=== PATIENT | female | born 1985 | race Caucasian/White ===

== ENCOUNTER 2019-06-06 17:53 | Observation (INO) | payer BC, OTHER ==
[2019-06-06 18:45] LABS: Basophils # (A) 0.1 k/uL (0-0.2); Basophils % (A) 1 %; Eosinophils # (A) 0.2 k/uL (0-0.7); Eosinophils % (A) 2 %; HCT 39.4 % (34.0-46.0); HGB 12.9 gm/dL (11.4-16.0); Lymphocytes # (A) 2.1 k/uL (1.0-4.8); Lymphocytes % (A) 24 %; MCH 27.6 pg (25.0-35.0); MCHC 32.8 g/dL (31.0-37.0); MCV 84.2 fL (80.0-100.0); Mean Platelet Volume 6.7; Monocytes # (A) 0.6 k/uL (0-1.0); Monocytes % (A) 6 %; Neutrophils # (A) 5.6 k/uL (1.3-7.7); Neutrophils % (A) 64 %; Platelet Count 284 k/uL (150-450); RBC 4.68 m/uL (3.80-5.40); RDW 13.1 % (11.5-15.5); WBC 8.7 k/uL (3.8-10.6)
--- NOTE | 2019-06-06 18:47 | ED ---
General Adult HPI - General Chief complaint: Chest Pain Stated complaint: palpitations/High BP Time Seen by Provider: 06/06/19 17:59 Source: patient Mode of arrival: ambulatory Limitations: no limitations - History of Present Illness Initial comments: This is a 34-year-old female who presents with complaints of palpitations and elevated blood pressure. She states she had the onset wall work today he has had occasional episodes in the past complained of some lightheadedness a brief episode less than 1 minute of chest pressure. She also was seen in outpatient clinic today and told follow-up with her doctor. She states when she is active she doesn't feel anything when she tries to rest she does notice the palpitations. No overt shortness of breath no recent illnesses no new medication she does have a history of hypertension was has not been on any medication and has not been diagnosed with hypertension. No other new medications no cough phlegm production dysuria hematuria no other modifying factors at this time. - Related Data Home Medications Medication Instructions Recorded Confirmed Cetirizine HCl [Zyrtec] 10 mg PO HS 06/06/19 06/06/19 Allergies Allergy/AdvReac Type Severity Reaction Status Date / Time No Known Allergies Allergy Verified 06/06/19 19:02 Review of Systems ROS Statement: Those systems with pertinent positive or pertinent negative responses have been documented in the HPI. ROS Other: All systems not noted in ROS Statement are negative. Past Medical History Additional Past Medical History / Comment(s): induced HTN, allergies History of Any Multi-Drug Resistant Organisms: None Reported Additional Past Surgical History / Comment(s): Sandra mcucllough&Thi Past Psychological History: No Psychological Hx Reported Smoking Status: Never smoker Past Alcohol Use History: Occasional Past Drug Use History: None Reported General Exam - General Exam Comments Initial Comments: This is a well-developed well-nourished awake alert oriented 3 female Limitations: no limitations General appearance: alert, in no apparent distress Head exam: Present: atraumatic, normocephalic, normal inspection Eye exam: Present: normal appearance, PERRL, EOMI. Absent: scleral icterus, conjunctival injection, periorbital swelling ENT exam: Present: normal exam, mucous membranes moist, TM's normal bilaterally Neck exam: Present: normal inspection, full ROM, other (No stridor JVD or bruits). Absent: tenderness, meningismus, lymphadenopathy Respiratory exam: Present: normal lung sounds bilaterally. Absent: respiratory distress, wheezes, rales, rhonchi, stridor Cardiovascular Exam: Present: regular rate, normal rhythm, normal heart sounds, other (Occasional extrasystoles noted). Absent: systolic murmur, diastolic murmur, rubs, gallop, clicks GI/Abdominal exam: Present: soft, normal bowel sounds. Absent: distended, tenderness, guarding, rebound, rigid Extremities exam: Present: normal inspection, full ROM, normal capillary refill. Absent: tenderness, pedal edema, joint swelling, calf tenderness Back exam: Present: normal inspection Neurological exam: Present: alert, oriented X3, CN II-XII intact Psychiatric exam: Present: normal affect, normal mood Skin exam: Present: warm, dry, intact, normal color. Absent: rash Course Vital Signs 06/06/19 06/06/19 17:56 19:11 Temperature 98.3 F Pulse Rate 95 75 Respiratory 18 18 Rate Blood Pressure 186/104 139/99 O2 Sat by Pulse 100 97 Oximetry - Reevaluation(s) Reevaluation #1: 06/06/19 20:32 Headache monitoring heart rate was impression a 78 on the monitor he she did have evidence of unifocal PVCs sometimes single sometimes doubles imaging several rounds of 3 were noted. EKG Findings - EKG Results: EKG: interpreted by DEBBIE (Sinus rhythm short NJ interval some PVCs noted rate was 78. NJ interval 88 QRS duration 114 QT since QTC 374/426 nonspecific septal configuration.) Medical Decision Making - Medical Decision Making I did discuss findings with the patient patient is having frequent unifocal PVCs no further chest pain and did discuss case with her the patient will be admitted for cardiac evaluation I did discuss the case with Dr. Cueva who did see the patient in emergency department. The patient family request Dr. Cueva. - Lab Data Result diagrams: 06/06/19 18:24 06/06/19 18:24 Lab Results 06/06/19 06/06/19 06/06/19 Range/Units 18:24 18:24 18:24 WBC 8.7 (3.8-10.6) k/uL RBC 4.68 (3.80-5.40) m/uL Hgb 12.9 (11.4-16.0) gm/dL Hct 39.4 (34.0-46.0) % MCV 84.2 (80.0-100.0) fL MCH 27.6 (25.0-35.0) pg MCHC 32.8 (31.0-37.0) g/dL RDW 13.1 (11.5-15.5) % Plt Count 284 (150-450) k/uL Neutrophils % 64 % Lymphocytes % 24 % Monocytes % 6 % Eosinophils % 2 % Basophils % 1 % Neutrophils # 5.6 (1.3-7.7) k/uL Lymphocytes # 2.1 (1.0-4.8) k/uL Monocytes # 0.6 (0-1.0) k/uL Eosinophils # 0.2 (0-0.7) k/uL Basophils # 0.1 (0-0.2) k/uL PT 10.1 (9.0-12.0) sec INR 0.9 (<1.2) APTT 25.6 (22.0-30.0) sec D-Dimer 0.24 (<0.60) mg/L FEU Sodium 142 (137-145) mmol/L Potassium 3.8 (3.5-5.1) mmol/L Chloride 109 H (98-107) mmol/L Carbon Dioxide 21 L (22-30) mmol/L Anion Gap 12 mmol/L BUN 9 (7-17) mg/dL Creatinine 0.68 (0.52-1.04) mg/dL Est GFR (CKD-EPI)AfAm >90 (>60 ml/min/1.73 sqM) Est GFR (CKD-EPI)NonAf >90 (>60 ml/min/1.73 sqM) Glucose 113 H (74-99) mg/dL Calcium 9.5 (8.4-10.2) mg/dL Magnesium 2.1 (1.6-2.3) mg/dL Total Bilirubin 0.4 (0.2-1.3) mg/dL AST 29 (14-36) U/L ALT 13 (9-52) U/L Alkaline Phosphatase 72 (38-126) U/L Creatine Kinase 73 (30-135) U/L Troponin I (0.000-0.034) ng/mL Total Protein 7.6 (6.3-8.2) g/dL Albumin 4.6 (3.5-5.0) g/dL TSH 3.850 (0.465-4.680) mIU/L Urine Color Urine Appearance (Clear) Urine pH (5.0-8.0) Ur Specific Hooper (1.001-1.035) Urine Protein (Negative) Urine Glucose (UA) (Negative) Urine Ketones (Negative) Urine Blood (Negative) Urine Nitrite (Negative) Urine Bilirubin (Negative) Urine Urobilinogen (<2.0) mg/dL Ur Leukocyte Esterase (Negative) Urine HCG, Qual (Not Detectd) 06/06/19 06/06/19 06/06/19 Range/Units 18:24 19:06 19:06 WBC (3.8-10.6) k/uL RBC (3.80-5.40) m/uL Hgb (11.4-16.0) gm/dL Hct (34.0-46.0) % MCV (80.0-100.0) fL MCH (25.0-35.0) pg MCHC (31.0-37.0) g/dL RDW (11.5-15.5) % Plt Count (150-450) k/uL Neutrophils % % Lymphocytes % % Monocytes % % Eosinophils % % Basophils % % Neutrophils # (1.3-7.7) k/uL Lymphocytes # (1.0-4.8) k/uL Monocytes # (0-1.0) k/uL Eosinophils # (0-0.7) k/uL Basophils # (0-0.2) k/uL PT (9.0-12.0) sec INR (<1.2) APTT (22.0-30.0) sec D-Dimer (<0.60) mg/L FEU Sodium (137-145) mmol/L Potassium (3.5-5.1) mmol/L Chloride (98-107) mmol/L Carbon Dioxide (22-30) mmol/L Anion Gap mmol/L BUN (7-17) mg/dL Creatinine (0.52-1.04) mg/dL Est GFR (CKD-EPI)AfAm (>60 ml/min/1.73 sqM) Est GFR (CKD-EPI)NonAf (>60 ml/min/1.73 sqM) Glucose (74-99) mg/dL Calcium (8.4-10.2) mg/dL Magnesium (1.6-2.3) mg/dL Total Bilirubin (0.2-1.3) mg/dL AST (14-36) U/L ALT (9-52) U/L Alkaline Phosphatase (38-126) U/L Creatine Kinase (30-135) U/L Troponin I <0.012 (0.000-0.034) ng/mL Total Protein (6.3-8.2) g/dL Albumin (3.5-5.0) g/dL TSH (0.465-4.680) mIU/L Urine Color Colorless Urine Appearance Clear (Clear) Urine pH 6.0 (5.0-8.0) Ur Specific Hooper 1.004 (1.001-1.035) Urine Protein Negative (Negative) Urine Glucose (UA) Negative (Negative) Urine Ketones Negative (Negative) Urine Blood Negative (Negative) Urine Nitrite Negative (Negative) Urine Bilirubin Negative (Negative) Urine Urobilinogen <2.0 (<2.0) mg/dL Ur Leukocyte Esterase Negative (Negative) Urine HCG, Qual Not Detected (Not Detectd) - Radiology Data Radiology results: report reviewed (Imaging was reviewed no acute findings.), image reviewed Disposition Clinical Impression: Atypical chest pain, Frequent PVCs, Palpitations Disposition: ADMITTED IP TO THIS HOSP Condition: Fair Referrals: Doc Redding DO [Primary Care Provider] - 1-2 days
[2019-06-06 18:51] LABS: ALT 13 U/L (9-52); AST 29 U/L (14-36); African American GFR (CKD) >90 (>60 ml/min/1.73 sqM); Albumin 4.6 g/dL (3.5-5.0); Alkaline Phosphatase 72 U/L (38-126); Anion Gap 12 mmol/L; Blood Urea Nitrogen 9 mg/dL (7-17); Calcium 9.5 mg/dL (8.4-10.2); Carbon Dioxide 21 mmol/L (22-30); Chloride 109 mmol/L (98-107); Creatine Kinase 73 U/L (30-135); D-Dimer 0.24 mg/L FEU (<0.60); Glucose 113 mg/dL (74-99); INR 0.9 (<1.2); Magnesium 2.1 mg/dL (1.6-2.3); Non-African American GFR(CKD) >90 (>60 ml/min/1.73 sqM); Partial Thromboplastin Time 25.6 sec (22.0-30.0); Potassium 3.8 mmol/L (3.5-5.1); Prothrombin Time 10.1 sec (9.0-12.0); Sodium 142 mmol/L (137-145); Total Bilirubin 0.4 mg/dL (0.2-1.3); Total Protein 7.6 g/dL (6.3-8.2)
--- NOTE | 2019-06-06 19:11 | XR ---
EXAMINATION TYPE: XR chest 2V DATE OF EXAM: 06/06/2019 COMPARISON: NONE HISTORY: High blood pressure TECHNIQUE: Frontal and lateral views of the chest are obtained. FINDINGS: Heart and mediastinum are normal. Lungs are clear. Diaphragm is normal. There are chest le ads. Bony thorax is intact. IMPRESSION: Normal chest
[2019-06-06 19:18] LABS: Appearance,Urine Clear (Clear); Bilirubin,Urine Negative (Negative); Blood,Urine Negative (Negative); Color,Urine Colorless; Glucose,Urine (UA) Negative (Negative); Ketones,Urine Negative (Negative); Leukocyte Esterase,Urine Negative (Negative); Nitrite,Urine Negative (Negative); Protein,Urine Negative (Negative); Specific Gravity,Urine 1.004 (1.001-1.035); Urobilinogen,Urine <2.0 mg/dL (<2.0)
[2019-06-06] MEDS ORDERED: NALOXONE 0.4 MG/ML 1 ML VIAL IV PRN (20:33)
[2019-06-06] MEDS ORDERED: METOPROLOL SUCCINATE (ER) 25 MG TAB.ER.24H PO STA (20:47)
[2019-06-06] MEDS ORDERED: amLODIPine 5 MG TAB PO STA (20:48)
--- NOTE | 2019-06-06 20:53 | P.HPIM ---
History of Present Illness H&P Date: 06/06/19 Chief Complaint: Palpitations and chest pain The patient is a 34-year-old female with a past medical history of -induced hypertension/preeclampsia who presents to the ER via private vehicle with chief complaint of palpitations that began earlier today. 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 Patient reports her symptoms are worse at rest, she also reported some fleeting nonradiating substernal chest pressure lasting approximately 30 seconds. The patient denies any diaphoresis, denies shortness of breath nausea or vomiting. The patient proceeded to measure her blood pressure at home and reported that it was high systolically in the 150s and diastolically in the 90s, she then presented to medics stress Where she reportedly had a EKG that was normal. Patient reports being on antihypertensive regimen during her initial up 11 years ago, reports that she was spilling protein in her urine and that her was induced at that time approximately 4 weeks early, she reported to be on lisinopril for a few weeks . In the ER the patient had a comprehensive workup, a chest x-ray was normal, EKG showed sinus rhythm with some unifocal PVCs, initial troponin was less than 0.012 d-dimer was 0.24. The patient was recommended for observation status Review of Systems Pertinent positives per HPI all other hospitalized negative Past Medical History Additional Past Medical History / Comment(s): induced HTN, allergies History of Any Multi-Drug Resistant Organisms: None Reported Additional Past Surgical History / Comment(s): Sandra mccullough&Thi Past Psychological History: No Psychological Hx Reported Smoking Status: Never smoker Past Alcohol Use History: Occasional Past Drug Use History: None Reported Medications and Allergies Home Medications Medication Instructions Recorded Confirmed Type Cetirizine HCl [Zyrtec] 10 mg PO HS 06/06/19 06/06/19 History Allergies Allergy/AdvReac Type Severity Reaction Status Date / Time No Known Allergies Allergy Verified 06/06/19 19:02 Physical Exam Vitals: Vital Signs Temp Pulse Resp BP Pulse Ox 06/06/19 19:11 75 18 139/99 97 06/06/19 17:56 98.3 F 95 18 186/104 100 Intake and Output 06/06/19 06/06/19 06/06/19 06:59 14:59 22:59 Other: Weight 74.843 kg Constitutional: No acute distress, conversant, pleasant Eyes: Anicteric sclerae, moist conjunctiva, no lid-lag, PERRLA ENMT: NC/AT,Oropharynx clear, no erythema, exudates Neck:Supple, FROM, no masses, or JVD, No carotid bruits; No thyromegaly Lungs: Clear to auscultation, Clear to percussion, Normal respiratory effort, no accessory muscle use Cardiovascular: Heart regular in rate and rhythm, No murmurs, gallops, or rubs no peripheral edema Abdominal: Soft Nontender, nom distended, no guarding, no rebound or rigidity, Normoactive bowel sounds No hepatomegaly, No splenomegaly, No palpable mass No abdominal wall hernia noted Skin: Normal temperature, tone, texture, turgor, No induration No subcutaneous nodules, No rash, lesions, No ulcers Extremities:No digital cyanosis No clubbing, Pedal pulses intact and symmetrical Radial pulses intact and symmetrical Normal gait and station, No calf tenderness Psychiatric: Alert and oriented to person, place and time, Appropriate affect Intact judgement Neuro: Muscles Strength 5/5 in all 4 extremities, Sensation to light touch grossly present throughout, Cranial nerves II-XII grossly intact. No focal sensory deficits Results CBC & Chem 7: 06/06/19 18:24 06/06/19 18:24 Labs: Abnormal Lab Results - Last 24 Hours (Table) 06/06/19 Range/Units 18:24 Chloride 109 H (98-107) mmol/L Carbon Dioxide 21 L (22-30) mmol/L Glucose 113 H (74-99) mg/dL Assessment and Plan (1) Atypical chest pain Current Visit: Yes Status: Acute Code(s): R07.89 - OTHER CHEST PAIN SNOMED Code(s): 647751670 (2) Hypertensive urgency Current Visit: Yes Status: Acute Code(s): I16.0 - HYPERTENSIVE URGENCY SNOMED Code(s): 685088126 (3) Palpitations Current Visit: Yes Status: Acute Code(s): R00.2 - PALPITATIONS SNOMED Code(s): 28697778 (4) Frequent PVCs Current Visit: Yes Status: Acute Code(s): I49.3 - VENTRICULAR PREMATURE DEPOLARIZATION SNOMED Code(s): 71485871 Plan: The patient's patient observation anticipate a less than 2 midnight stay with hypertensive urgency, atypical chest pain after presented with palpitations workup so far as been negative except with PVCs seen on her EKG we'll order echocardiogram TSH was normal at 3.85. The patient is noted to have elevated blood pressures will start her on Toprol-XL and Norvasc. Cardiology is also been consulted from the ER we'll follow-up any recommendations that they have. We'll continue to follow her clinical course. CODE STATUS: Full code Anticipated discharge: 1-[address]: Home Prophylaxis: SCDs
[2019-06-06] MEDS ORDERED: ONDANSETRON 4 MG/2 ML VIAL IVP PRN (20:58)
[2019-06-06] MEDS ORDERED: ACETAMINOPHEN TAB 325 MG TAB PO PRN (20:58)
[2019-06-06] MEDS ORDERED: LORATADINE 10 MG TAB PO SCH (21:00)
[2019-06-06 22:03] VITALS: RESP 18; BMI 28.3
[2019-06-06] MEDS: SODIUM CHLORIDE 0.9% 1,000 ML IV SCH (23:47)
[2019-06-07] MEDS ORDERED: POTASSIUM CHLORIDE ER 20 MEQ TAB.ER PO STA (08:11)
[2019-06-07] MEDS: SODIUM CHLORIDE 0.9% 1,000 ML IV SCH (08:41)
[2019-06-07] MEDS: METOPROLOL SUCCINATE (ER) 25 MG TAB.ER.24H PO SCH ×3 (08:41→14:06)
--- NOTE | 2019-06-07 08:50 | P.CRDCN ---
History of Present Illness Consult date: 06/07/19 Requesting physician: Eitan Cueva Reason for Consult (text): Palpitations Chief complaint: Palpitations, lightheadedness History of present illness: This is a pleasant 34-year-old female with no documented history of hypertension other than when she was , no diabetes, no hyperlipidemia, she is a nonsmoker, rarely drinks alcohol, does not drink excessive caffeinated beverages she presents to the hospital with symptoms of palpitations with associated lightheadedness. She also states that she had an episode of chest pressure. According to the patient, she states she may not have drink as much water as she should have over the past couple of days. Her blood pressure on arrival here 186/104, heart rate in the 90s, 100% on room air, temperature 98.3. Blood pressure this morning 114/88, heart rate in the 70s, 98% on room air. White blood cell count 8.7, hemoglobin 12.9, platelet count 284. D-dimer 0.24. Sodium 142, potassium 3.8, chloride 109, BUN 9 and creatinine 0.6. Magnesium level II.1, troponins negative 3, TSH level 3.85. On review of the monitor strips, patient is having occasional PACs and PVCs. At the time of my examination this morning, patient states she still feels palpitations off-and-on since her arrival here. Past Medical History Additional Past Medical History / Comment(s): induced HTN, allergies History of Any Multi-Drug Resistant Organisms: None Reported Additional Past Surgical History / Comment(s): gabrielle haider, D&C Past Anesthesia/Blood Transfusion Reactions: No Reported Reaction Past Psychological History: No Psychological Hx Reported Smoking Status: Never smoker Past Alcohol Use History: Occasional Past Drug Use History: None Reported Medications and Allergies Home Medications Medication Instructions Recorded Confirmed Type Cetirizine HCl [Zyrtec] 10 mg PO HS 06/06/19 06/06/19 History Allergies Allergy/AdvReac Type Severity Reaction Status Date / Time No Known Allergies Allergy Verified 06/06/19 19:02 Physical Exam Vitals: Vital Signs Temp Pulse Pulse Resp BP BP Pulse Ox 06/07/19 04:00 97.7 F 75 18 113/89 98 06/07/19 03:20 69 18 06/06/19 23:40 69 18 06/06/19 23:36 98.0 F 69 18 131/70 98 06/06/19 21:55 98.2 F 74 18 135/95 96 06/06/19 21:40 86 16 126/86 97 06/06/19 21:30 14 130/93 98 06/06/19 21:20 68 14 130/93 99 06/06/19 21:10 74 15 130/93 99 06/06/19 21:00 72 12 156/122 98 06/06/19 20:50 68 11 L 156/122 99 06/06/19 20:40 68 13 156/122 98 06/06/19 20:30 66 13 133/98 99 06/06/19 20:20 72 10 L 133/98 99 06/06/19 20:10 69 17 133/98 99 06/06/19 20:00 72 10 L 141/94 98 06/06/19 19:50 61 15 141/94 98 06/06/19 19:40 61 14 141/94 99 06/06/19 19:30 68 7 L 139/99 99 06/06/19 19:20 71 23 139/99 98 06/06/19 19:11 75 18 139/99 97 06/06/19 19:10 64 7 L 139/99 97 06/06/19 19:00 73 8 L 146/107 97 06/06/19 18:50 62 35 H 146/107 100 06/06/19 18:40 84 22 146/107 97 06/06/19 18:30 70 15 150/106 98 06/06/19 18:20 93 13 150/106 98 06/06/19 18:14 98 06/06/19 17:56 98.3 F 95 18 186/104 100 Intake and Output 06/06/19 06/07/19 06/07/19 22:59 06:59 14:59 Other: Voiding Method Toilet Toilet # Voids 1 1 Weight 74.843 kg 77.1 kg PHYSICAL EXAMINATION: GENERAL: 44-year-old female in no acute distress at the time of my examination HEENT: Head is atraumatic, normocephalic. Pupils equal, round. Sclera anicteric. Conjunctiva are clear. Mucous membranes of the mouth are moist. Neck is supple. There is no elevated jugular venous pressure. No carotid bruit is heard. HEART EXAMINATION: Heart S1, S2 normal. No murmur or gallop heard. CHEST EXAMINATION: Lungs are clear to auscultation and precussion. No chest wall tenderness is noted on palpation or with deep breathing. ABDOMEN: Soft, nontender. Bowel sounds are heard. No organomegaly noted. EXTREMITIES: 2+ peripheral pulses with no evidence of peripheral edema and no calf tenderness noted. NEUROLOGIC patient is awake, alert and oriented X3 . Results 06/06/19 18:24 06/06/19 18:24 Cardiac Enzymes 06/06/19 06/06/19 06/07/19 Range/Units 18:24 18:24 00:14 AST 29 (14-36) U/L Troponin I <0.012 <0.012 (0.000-0.034) ng/mL 06/07/19 Range/Units 06:24 AST (14-36) U/L Troponin I <0.012 (0.000-0.034) ng/mL Coagulation 06/06/19 Range/Units 18:24 PT 10.1 (9.0-12.0) sec APTT 25.6 (22.0-30.0) sec CBC 06/06/19 Range/Units 18:24 WBC 8.7 (3.8-10.6) k/uL RBC 4.68 (3.80-5.40) m/uL Hgb 12.9 (11.4-16.0) gm/dL Hct 39.4 (34.0-46.0) % Plt Count 284 (150-450) k/uL Comprehensive Metabolic Panel 06/06/19 Range/Units 18:24 Sodium 142 (137-145) mmol/L Potassium 3.8 (3.5-5.1) mmol/L Chloride 109 H (98-107) mmol/L Carbon Dioxide 21 L (22-30) mmol/L BUN 9 (7-17) mg/dL Creatinine 0.68 (0.52-1.04) mg/dL Glucose 113 H (74-99) mg/dL Calcium 9.5 (8.4-10.2) mg/dL AST 29 (14-36) U/L ALT 13 (9-52) U/L Alkaline Phosphatase 72 (38-126) U/L Total Protein 7.6 (6.3-8.2) g/dL Albumin 4.6 (3.5-5.0) g/dL Current Medications Generic Name Dose Route Start Last Admin Trade Name Freq PRN Reason Stop Dose Admin Acetaminophen 650 mg 06/06/19 20:58 Tylenol Tab PO Q6HR PRN Mild Pain or Fever > 100.5 Amlodipine Besylate 5 mg 06/07/19 09:00 Norvasc PO DAILY MARYANA Sodium Chloride 1,000 mls @ 20 mls/hr 06/06/19 20:45 06/06/19 23:47 Saline 0.9% IV Not Given .Q24H MARYANA Loratadine 10 mg 06/06/19 21:00 06/06/19 21:03 Claritin PO 10 mg HS MARYANA Administration Metoprolol Succinate 25 mg 06/07/19 09:00 Toprol Xl PO DAILY MARYANA Naloxone HCl 0.2 mg 06/06/19 20:33 Narcan IV Q2M PRN Opioid Reversal Ondansetron HCl 4 mg 06/06/19 20:58 Zofran IVP Q8HR PRN Nausea And Vomiting Intake and Output 06/06/19 06/07/19 06/07/19 22:59 06:59 14:59 Other: Voiding Method Toilet Toilet # Voids 1 1 Weight 74.843 kg 77.1 kg 06/06/19 18:24 06/06/19 18:24 EKG Interpretations (text) EKG shows a normal sinus rhythm with occasional PVCs and PACs. Assessment and Plan Plan: Assessment and plan #1 symptoms of palpitations with associated lightheadedness, evidence of occasional PACs and PVCs on the monitor. EKG shows a normal sinus rhythm with no acute changes. #2 accelerated hypertension, blood pressure this morning 112/80. #3 cardiac risk factors negative for hypertension other than gestational, no diabetes, no hyperlipidemia, she is a nonsmoker #4 seasonal ALLERGIES, on Zyrtec at home. Plan We will review the echocardiogram with Doppler study that been performed. Potassium level was 3.8 we will give her a one-time dose of potassium. Patient also has been advised to undergo a stress test which will be performed today. She was initiated on Norvasc along with metoprolol in the emergency room. We will continue to monitor for any significant tachycardia or bradycardia arrhythmias. Further recommendations to follow. DNP note has been reviewed, I agree with a documented findings and plan of care. Patient was seen and examined.
[2019-06-07] MEDS ORDERED: amLODIPine 5 MG TAB PO SCH (09:00)
[2019-06-07 11:39] VITALS: BP 121/82; PULSE 76; TEMP 97.4
--- NOTE | 2019-06-07 18:36 | ECHOF ---
Referral Reason:Palpitations, PVCs MEASUREMENTS -------- HEIGHT: 162.6 cm WEIGHT: 76.7 kg BP: 113/89 RVIDd: 2.8 cm (< 3.3) IVSd: 1.3 cm (0.6 - 1.1) LVIDd: 3.9 cm (3.9 - 5.3) LVPWd: 1.0 cm (0.6 - 1.1) IVSs: 1.8 cm LVIDs: 2.0 cm LVPWs: 1.6 cm LAESV Index (A-L): 23.63 ml/m Ao Diam: 2.1 cm (2.0 - 3.7) AV Cusp: 1.7 cm (1.5 - 2.6) LA Diam: 2.5 cm (2.7 - 3.8) EPSS: 0.6 cm MV E Doroteo: 1.07 m/s MV DecT: 194 ms MV A Doroteo: 0.63 m/s MV E/A Ratio: 1.70 RAP: 5.00 mmHg RVSP: 24.56 mmHg MV EF SLOPE: 98.52 mm/s (70 - 150) MV EXCURSION: 0.88 cm (> 18.000) FINDINGS -------- Sinus rhythm with extra systolic beats. This was a technically adequate study. There is mild concentric left ventricular hypertrophy. Overall left ventricular systolic function i s normal with, an EF between 55 - 60 %. The diastolic filling pattern is normal for the age of the patient. The right ventricle is normal in size. Left atrium is normal size by volume. The right atrial size is normal. Interatrial and interventricular septum intact. The aortic valve is trileaflet and appears structurally normal. There is no evidence of aortic regu rgitation. There is no evidence of aortic stenosis. Mild mitral regurgitation is present. Mild tricuspid regurgitation present. There is no evidence of pulmonary hypertension. The right v entricular systolic pressure, as measured by Doppler, is 24.56mmHg. There is no pulmonic regurgitation present. The aortic root size is normal. The inferior vena cava was not well visualized. There is no pericardial effusion. CONCLUSIONS -------- 1. Sinus rhythm with extra systolic beats. 2. This was a technically adequate study. 3. There is mild concentric left ventricular hypertrophy. 4. Overall left ventricular systolic function is normal with, an EF between 55 - 60 %. 5. The diastolic filling pattern is normal for the age of the patient. 6. The right ventricle is normal in size. 7. Left atrium is normal size by volume. 8. The right atrial size is normal. 9. Interatrial and interventricular septum intact. 10. The aortic valve is trileaflet and appears structurally normal. 11. There is no evidence of aortic regurgitation. 12. There is no evidence of aortic stenosis. 13. Mild mitral regurgitation is present. 14. Mild tricuspid regurgitation present. 15. There is no evidence of pulmonary hypertension. 16. The right ventricular systolic pressure, as measured by Doppler, is 24.56mmHg. 17. There is no pulmonic regurgitation present. 18. The aortic root size is normal. 19. The inferior vena cava was not well visualized. 20. There is no pericardial effusion. PHOTOCOPY OPERATOR: Consuelo Valenzuela RDCS
--- NOTE | 2019-06-07 20:04 | ECHOS ---
STRESS ECHOCARDIOGRAM DATE OF SERVICE: 06/07/2019 INDICATIONS: Chest pain, palpitations. MEDICATIONS: Zyrtec. BASELINE HEART RATE: 58 BASELINE BLOOD PRESSURE: 139/97 MAXIMUM HEART RATE: 179 MAXIMUM BLOOD PRESSURE: 183/85 85% MPHR: 158 100% MPHR: 186 METS: 11.5 MAXIMUM STAGE REACHED: IV TOTAL EXERCISE TIME: 9:59 CLINICAL INFORMATION: Baseline EKG revealed normal sinus rhythm without significant ST-T changes. Patient walked on a standard [place] protocol for a total duration of 10 minutes, achieved a maximum heart rate of 179 beats per minute, which is well above 85% of predicted maximal. There were rare isolated PVCs noted. There was no evidence of any significant ST-segment abnormality to indicate any ischemia. By EKG criteria, this is a negative stress test with good exercise capacity with rare PVCs and no angina. Baseline echo images revealed normal wall motion and wall thickening of all segments. At peak exercise there was good augmentation of left ventricular wall motion and wall thickening of all segments, suggesting that there is no evidence of stress-induced ischemia on this study. FINAL IMPRESSION: 1. By EKG criteria, this is a negative stress test with good exercise capacity with rare isolated PVCs and no angina. 2. Normal stress echocardiogram. MMODL / IJN: [id number] /
[2019-06-08] MEDS ORDERED: METOPROLOL SUCCINATE (ER) 50 MG TAB.ER.24H PO SCH (09:00)
--- NOTE | 2019-06-08 11:19 | P.DS ---
Providers Date of admission: 06/06/19 20:33 Expected date of discharge: 06/07/19 Attending physician: Eitan Cueva MD Consults: 06/06/19 20:34 Consult Physician Routine Consulting Provider: Desirae Toth Consult Reason/Comments: Atypical chest pain, frequent PVCs and palpitations Do you want consulting provider notified?: Yes Primary care physician: [facility] Course: The patient is a 34-year-old female with a PMH of induced preeclampsia who presented to the ED with complaints of palpitations and chest pressure. The patient was working when she suddenly developed palpitations associated with some lightheadedness and mild frontal headache. The patient had denied any diaphoresis, shortness of breath, nausea, or vomiting. The patient underwent an extensive evaluation in the ED with chest x-ray that was unremarkable and an EKG showing normal sinus rhythm with PVCs. Laboratory evaluation had revealed a troponin level of less than 0.012 and a d-dimer of 0.24. The patient was admitted under observation for cardiology evaluation. Cardiology recommended a stress echocardiogram which was unremarkable. The patient however continued to have palpitations and was thereby set up with an event monitor and was discharged home with a cardiology follow-up. The patient was seen and examined prior to discharge. She reported no episodes of chest pain, shortness of breath, nausea, vomiting, fever, chills, or cough. She did report occasional palpitations lasting for a few seconds at a time. Physical Examination General: Non-toxic, in no acute distress, appears stated age, normal weight HEENT: NC/AT, anicteric sclerae, moist conjunctiva, no lid-lag, PERRLA Cardiovascular: S1/S2 wnl, no murmurs, rubs, or gallops Lungs: Clear to auscultation, normal respiratory effort, no accessory muscle use Abdominal: Soft, non-tender, non-distended, no guarding, rebound, or rigidity Skin: Warm, dry Extremities: No edema or contractures Psychiatric: Alert and oriented to person, place and time, appropriate affect Neuro: CN II-XII grossly intact, Strength 5/5 in all 4 extremities, Speech intact, Sensation to light touch grossly intact throughout Discharge diagnosis: Atypical chest pain, hypertensive urgency, palpitations, history of preeclampsia A total of 45 minutes of time were spent preparing this complex discharge summary. Patient Condition at Discharge: Stable Plan - Discharge Summary Discharge Rx Participant: No New Discharge Prescriptions: New Metoprolol Succinate (ER) [Toprol XL] 50 mg PO DAILY #30 tab.er.24h No Action Cetirizine HCl [Zyrtec] 10 mg PO HS Discharge Medication List Cetirizine HCl [Zyrtec] 10 mg PO HS 06/06/19 [History] Metoprolol Succinate (ER) [Toprol XL] 50 mg PO DAILY #30 tab.er.24h 06/07/19 [Rx] Follow up Appointment(s)/Referral(s): Aakash Lott MD [STAFF PHYSICIAN] - 06/20/19 4:00 pm (At [facility], next to [address] in [place]. Please bring photo ID, insurance card and a list of current medications to appointment. ) Doc Redding DO [Primary Care Provider] - 06/09/19 10:20 am (With Kirstie GOFF) Patient Instructions/Handouts: Heart Palpitations (DC), Cardiac Stress Test (DC) Activity/Diet/Wound Care/Special Instructions: 30 DAY EVENT MONITOR - ordered to be delivered to bedside. Discharge Disposition: HOME SELF-CARE
--- NOTE | 2019-06-28 12:05 | EM ---
EVENT MONITOR Referring physician: Dr. Lott INDICATION: Palpitations. Underlying rhythm is sinus. There was frequent ventricular ectopy including ventricular trigeminy, quadrigeminy and PVCs noted. There were episodes of sinus tachycardia noted. There were rare PACs and short self-limited run of atrial tachycardia noted. The patient had symptoms associated with PVCs primarily in the form of palpitations. CONCLUSIONS: This 30-day event monitor shows sinus rhythm with frequent ventricular ectopy that were symptomatic. MMODL / IJN: [id number] /
== END 2019-06-07 15:04 | disposition home or self-care (01) ==
LOC: EC 17:53 → 1SOBS 20:33 → 3SCARD 21:29
PROVIDERS: ADMIT Family Medicine; ATTEND Family Medicine
DX: R07.89 Other chest pain (principal); I16.0 Hypertensive urgency; I49.1 Atrial premature depolarization; I49.3 Ventricular premature depolarization; J30.2 Other seasonal allergic rhinitis; Z79.899 Other long term (current) drug therapy; Z87.59 Personal history of other complications of pregnancy, childbirth and the puerperium
CPT/HCPCS: 99285; 36415; 93005; 93306; 93270; 93351; 85379; 80053; 82550; 83735; 84443; 84484 ×2; 85025; 85610; 85730; 81003; 81025; 71046; G0378 ×3

== ENCOUNTER → 2020-11-26 | Outpatient (CLI) | payer OTHER ==
[2020-11-26 13:10] LABS: Basophils # (A) 0.1 k/uL (0-0.2); Basophils % (A) 1 %; Eosinophils # (A) 0.2 k/uL (0-0.7); Eosinophils % (A) 2 %; HGB 12.6 gm/dL (11.4-16.0); Lymphocytes # (A) 1.9 k/uL (1.0-4.8); Lymphocytes % (A) 29 %; MCH 28.1 pg (25.0-35.0); MCHC 33.3 g/dL (31.0-37.0); MCV 84.6 fL (80.0-100.0); Mean Platelet Volume 6.9; Monocytes # (A) 0.3 k/uL (0-1.0); Monocytes % (A) 5 %; Neutrophils % (A) 61 %; Platelet Count 308 k/uL (150-450); RBC 4.49 m/uL (3.80-5.40); RDW 12.6 % (11.5-15.5); WBC 6.6 k/uL (3.8-10.6)
== END | disposition home or self-care (01) ==
LOC: LABWHC1 11:46
PROVIDERS: ATTEND Physician Assistant Medical
DX: R79.9 Abnormal finding of blood chemistry, unspecified (principal)
CPT/HCPCS: 36415; 85025

== ENCOUNTER → 2021-01-24 | Outpatient (CLI) | payer OTHER ==
--- NOTE | 2021-01-24 08:55 | CT ---
EXAMINATION TYPE: CT soft tissue neck w con DATE OF EXAM: 01/24/2021 COMPARISON: None HISTORY: 35-year-old female L040, acute lymphadenitis of the face, head and neck. Left sided swelling marked by BB TECHNIQUE: Contiguous axial scanning of the soft tissues of the neck performed with IV Contrast, elizabeth ent injected with 100 mL of Isovue 300. Coronal/sagittal reconstructions performed. CT DLP: 620.5 mGycm Automated exposure control for dose reduction was used. FINDINGS: The thyroid and submandibular glands are satisfactory. The parotid glands are atrophic bilaterally. Visualized intracranial structures, orbits and globes, and mastoid air cells appear clear. Mild mucos al thickening left maxillary sinus and leftward nasal septal deviation. Nasopharynx is clear. Punctate calcifications in the region of the right palatine tonsil suggests sequela of prior infectio n. Mild bilateral palatine tonsillar hypertrophy. Oropharynx otherwise clear. Epiglottis and prevertebral soft tissues are satisfactory. Glottic and subglottic structures as well as the tracheal column and visualized upper lungs are clear . There is a palpable marker along the left upper neck just posterior to the submandibular space. There is a mildly enlarged 8mm submandibular space lymph node here on the left. On the right, a borderline -sized submandibular space lymph node measures 6 mm. Other nonenlarged lymph nodes are present on both sides of the neck measuring up to 7 mm. No suspicious neck mass is identified with particular attention to the patient's palpable site. Bones: No osseous destructive process. IMPRESSION: 1. PALPABLE MARKER PLACED ALONG THE LEFT UPPER NECK JUST POSTERIOR TO THE SUBMANDIBULAR SPACE. THERE IS A MILDLY ENLARGING 8 MM SHORT AXIS LEFT SUBMANDIBULAR SPACE LYMPH NODE, PROBABLY REACTIVE/POST INF LAMMATORY. THIS IN ANY OTHER PALPABLE AREA CAN BE FOLLOWED CLINICALLY. IF ANY ENLARGEMENT IS NOTED, C ONSIDER FOLLOW-UP ULTRASOUND. 2. NO SUSPICIOUS NECK MASS IDENTIFIED. 3. INCIDENTALLY, MILDLY ATROPHIC BILATERAL PAROTID GLANDS.
== END ==
LOC: RADCTMAIN 07:14
PROVIDERS: ATTEND Family Medicine
DX: R59.0 Localized enlarged lymph nodes (principal)
CPT/HCPCS: 70491; Q9967

== ENCOUNTER → 2021-08-17 | Outpatient (CLI) | payer OTHER ==
[2021-08-17 20:39] LABS: African American GFR (CKD) 95.5 (60.0-200.0); Albumin 4.6 g/dL (3.8-4.9); Albumin/Globulin Ratio 1.8 (1.60-3.17); Anion Gap 12.2 mmol/L (4.00-12.00); BUN/Creat Ratio 12.01 Ratio (12.00-20.00); Blood Urea Nitrogen 10.8 mg/dL (9.0-27.0); Calcium 9.3 mg/dL (8.7-10.3); Globulin 2.5 g/dL (1.6-3.3); Non-African American GFR(CKD) 82.4 (60.0-200.0); Potassium 4.2 mmol/L (3.5-5.5); T4, Free (Free Thyroxine) 1.16 ng/dL (0.800-1.800); Total Bilirubin 0.3 mg/dL (0.30-1.20); Total Protein 7.1 g/dL (6.2-8.2)
== END | disposition home or self-care (01) ==
LOC: LABWHC1 11:33
PROVIDERS: ATTEND Internal Medicine Cardiovascular Disease
DX: I10 Essential (primary) hypertension (principal); I47.1 Supraventricular tachycardia
CPT/HCPCS: 36415; 80053; 84439; 84443

== ENCOUNTER → 2022-11-10 | Outpatient (CLI) | payer OTHER ==
[2022-11-10 14:18] LABS: Basophils # (A) 0.03 X 10*3/uL (0.00-0.10); Basophils % (A) 0.7 %; Eosinophils # (A) 0.14 X 10*3/uL (0.04-0.35); Eosinophils % (A) 3.1 %; HCT 36.7 % (37.2-46.3); HGB 11.6 g/dL (12.0-15.0); Immature Grans, Automated 0 %; Lymphocytes # (A) 1.65 X 10*3/uL (0.90-5.00); MCH 26.1 pg (27.0-32.0); MCHC 31.6 g/dL (32.0-37.0); MCV 82.7 fL (80.0-97.0); Mean Platelet Volume 10.2 fL (9.5-12.2); Monocytes # (A) 0.31 X 10*3/uL (0.20-1.00); Monocytes % (A) 6.8 %; NRBC Per 100 WBC 0 /100 WBCS (0.0-0.0); Neutrophils # (A) 2.45 X 10*3/uL (1.80-7.70); Neutrophils % (A) 53.4 %; Platelet Count 304 X 10*3/uL (140-440); RBC 4.44 X 10*6/uL (4.10-5.20); RDW 13.7 % (11.5-14.5); WBC 4.58 X 10*3/uL (4.50-10.00)
[2022-11-10 14:51] LABS: ALT 20 U/L (8-44); AST 23 U/L (13-35); African American GFR (CKD) 93.8 (60.0-200.0); Albumin 4.3 g/dL (3.8-4.9); Albumin/Globulin Ratio 1.94 (1.60-3.17); Alkaline Phosphatase 80 U/L (41-126); BUN/Creat Ratio 13.56 Ratio (12.00-20.00); Blood Urea Nitrogen 12.3 mg/dL (9.0-27.0); Carbon Dioxide 24.9 mmol/L (20.0-27.5); Chloride 107 mmol/L (96-109); Chol/HDL Ratio 4.29 Ratio; Globulin 2.2 g/dL (1.6-3.3); Glucose 92 mg/dL (70-110); Non-African American GFR(CKD) 80.9 (60.0-200.0); Sodium 142 mmol/L (135-145); Total Protein 6.5 g/dL (6.2-8.2)
== END | disposition home or self-care (01) ==
LOC: LABWHC1 07:40
PROVIDERS: ATTEND Physician Assistant Medical
DX: Z00.00 Encounter for general adult medical examination without abnormal findings (principal); I10 Essential (primary) hypertension
CPT/HCPCS: 36415; 80053; 80061; 84443; 85025

== ENCOUNTER 2023-08-06 06:18 | Day surgery (SDC) | payer OTHER ==
[2023-07-31 13:29] VITALS: BMI 24.0
--- NOTE | 2023-08-05 12:19 | P.HPOB ---
History of Present Illness H&P Date: 08/05/23 Chief Complaint: Menorrhagia This patient is a pleasant 38-year-old 3 para 1 female who presented to my office with complaints of heavy menstrual cycles. This is been going on for a long period of time. Evaluation has included a pelvic ultrasound which was normal. Patient's is had a vasectomy and she is requesting endometrial ablation for treatment. Review of Systems Genitourinary: Reports as per HPI, Reports menorrhagia Menstruation: Reports menses 8 or > days, Reports period heavy Past Medical History Past Medical History: Cancer, Hypertension Additional Past Medical History / Comment(s): hx melanoma, anemia, hx heart palpitations., menorrhagia History of Any Multi-Drug Resistant Organisms: None Reported Additional Past Surgical History / Comment(s): gabrielle haider, D&C, ganglion cyst left wrist Past Anesthesia/Blood Transfusion Reactions: No Reported Reaction, Motion Sickness Past Psychological History: No Psychological Hx Reported Smoking Status: Never smoker Past Alcohol Use History: Occasional Past Drug Use History: None Reported Medications and Allergies Home Medications Medication Instructions Recorded Confirmed Type Cetirizine HCl [Zyrtec] 10 mg PO HS 06/06/19 07/31/23 History Metoprolol Succinate (ER) [Toprol 25 mg PO BID 07/31/23 07/31/23 History XL] Tirzepatide [Mounjaro] 7.5 mg SQ DIRECTED 07/31/23 07/31/23 History lisinopriL [Zestril] 5 mg PO HS 07/31/23 07/31/23 History Allergies Allergy/AdvReac Type Severity Reaction Status Date / Time No Known Allergies Allergy Verified 07/31/23 13:12 Exam - OBG Physical Exam Abdomen: bowel sounds normal, no diffuse tenderness, no bruit present, no guarding noted, no hepatomegaly, no splenomegaly, no mass Vulva: both: normal Vagina: normal moisture, no discharge Cervix: no lesion, no discharge Uterus: normal size, normal contour Results Transvaginal ultrasound on February 20 was normal. Assessment and Plan Assessment: This is a pleasant 38-year-old 3 para 1 female with long-standing menorrhagia requesting endometrial ablation for treatment. Plan is hysteroscopy, D&C, and NovaSure endometrial ablation. Patient understands this surgery and risks and risks of infection, bleeding, possible uterine perforation, and/or thermal injury. All the patient's questions are answered and a written consent is obtained. (1) Menorrhagia Status: Acute Code(s): N92.0 - EXCESSIVE AND FREQUENT MENSTRUATION WITH REGULAR CYCLE SNOMED Code(s): 713711040
[~2023-08-06 06:18] MED LIST: DEXAMETHASONE SOD PHOSPHATE 4 MG/ML 1 ML VIAL IV ONE; LACTATED RINGERS 1,000 ML IV SCH; ONDANSETRON 4 MG/2 ML VIAL IVP ONE; Pre Op ABX Message 1 EACH MISC MISCELLANE ONE; fentaNYL (PF) 50 MCG/ML 2 ML AMP IV PRN
[2023-08-06] MEDS ORDERED: SCOPOLAMINE 1 MG/72 HR PATCH TRANSDERM ONE (07:00)
[2023-08-06 07:16] LABS: Glucose,Whole Blood 96 mg/dL (70-110)
[2023-08-06] MEDS ORDERED: MIDAZOLAM 2 MG/2 ML VIAL ONE (07:25)
[2023-08-06] MEDS ORDERED: LIDOCAINE 2% INJ 20 MG/ML (2 ML VIAL) ONE (07:25)
[2023-08-06] MEDS ORDERED: fentaNYL (PF) 50 MCG/ML 2 ML AMP ONE (07:25)
[2023-08-06] MEDS ORDERED: KETOROLAC 30 MG/ML 1 ML VIAL ONE (07:25)
[2023-08-06] MEDS ORDERED: PROPOFOL 10 MG/ML 20 ML VIAL IV ONE (07:25)
--- NOTE | 2023-08-06 07:58 | P.OP ---
Date of Procedure: 08/06/23 Preoperative Diagnosis: Menorrhagia Postoperative Diagnosis: Same Procedure(s) Performed: #1: Hysteroscopy. #2: Dilation and curettage. #3: NovaSure endometrial ablation Anesthesia: MAC Surgeon: Travis Valenzuela Estimated Blood Loss (ml): 10 Urine output (ml): 10 Pathology: other (Uterine curettings) Condition: stable Disposition: PACU Indications for Procedure: Please see dictated H&P for intimate details of this patient's admission. In brief summary this is a pleasant 38-year-old multiparous patient with long- standing menorrhagia requesting NovaSure endometrial ablation for treatment. Patient her stands the surgery and risks and risks of infection, bleeding, possible uterine perforation, and/or thermal injury. All the patient's questions are answered and a written consent is obtained. Operative Findings: This patient normal appearing endometrial cavity without evidence of polyps or fibroids. Description of Procedure: This patient is taken to the operating room where she is laid in the supine position. She subsequent undergoes general mask anesthesia without incident. With an adequate level of anesthesia she has a perineal prep and drape. Examination under anesthesia shows a normal size uterus anteverted. I placed a weighted speculum in the posterior vagina. The bladder is drained for 10 mL of clear urine. An Allis clamp was placed on the anterior lip of the cervix. Maude karina is then gently sounded to 8 cm. Serial dilation of the endocervix is done to allow the hysteroscope easily and uterine cavity. Using saline solution, hysteroscopy is performed and the uterine cavity appears normal. Length was measured at 6.0 cm. With this done the hysteroscope was removed. Cervix is dilated more to allow a small curette easily uterine cavity. A gentle but thorough 4 quadrant curettage is then done. This completed the NovaSure device is then opened. It is set at a length of 6.0 cm and seated in place and opens up to a width of 4.0 cm. After passing the cavity integrity test, NovaSure device is then enabled at 132 W setting for 61 seconds. NovaSure device is then removed. Hysteroscopy is performed again and excellent results were noted with complete ablation up to the endocervix. The procedure is then ended. The Allis clamp and weighted speculum were removed. All counts are correct 3. There are no complications. Patient is awakened from anesthesia and taken recovery room satisfactory condition.
[2023-08-06 08:01] VITALS: TEMP 97.2
[2023-08-06 08:36] VITALS: RESP 18
[2023-08-06 08:53] VITALS: BP 108/72; PULSE 59
== END 2023-08-06 09:29 | disposition home or self-care (01) ==
LOC: OR 06:18
PROVIDERS: ATTEND Obstetrics & Gynecology
DX: N92.0 Excessive and frequent menstruation with regular cycle (principal); I10 Essential (primary) hypertension; F10.90 Alcohol use, unspecified, uncomplicated; Z85.820 Personal history of malignant melanoma of skin; Z79.899 Other long term (current) drug therapy
CPT/HCPCS: 58563; 81025; 88305; J2250; J1100; J2405; J3010; J1885; J2704; J2001

== ENCOUNTER → 2024-03-18 | Outpatient (CLI) | payer OTHER ==
--- NOTE | 2024-03-20 18:57 | XR ---
EXAMINATION TYPE: XR sacrum coccyx DATE OF EXAM: 03/18/2024 COMPARISON: NONE HISTORY: 38-year-old female mid sacral pain for 2 to 4 weeks. [id number] SACROCOCCYGEAL DIS TECHNIQUE: 3 views FINDINGS: No displaced or angulated sacral fracture is identified. SI joints appear symmetric and int act. Smooth delineation to the arcuate lines of the sacrum. IMPRESSION: No displaced or angulated tailbone fracture is seen.
== END | disposition home or self-care (01) ==
LOC: RADXRYALE 16:37
PROVIDERS: ATTEND Physician Assistant Medical
DX: M53.3 Sacrococcygeal disorders, not elsewhere classified (principal)
CPT/HCPCS: 72220

== ENCOUNTER → 2025-01-11 | Outpatient (CLI) | payer OTHER ==
[2025-01-11 10:49] LABS: Basophils # (A) 0.04 X 10*3/uL (0.00-0.10); Basophils % (A) 0.9 %; Eosinophils # (A) 0.12 X 10*3/uL (0.04-0.35); Eosinophils % (A) 2.7 %; HCT 39.9 % (37.2-46.3); HGB 13.3 g/dL (12.0-15.0); Immature Grans, Automated 0 %; Lymphocytes # (A) 1.77 X 10*3/uL (0.90-5.00); Lymphocytes % (A) 39.6 %; MCH 28.9 pg (27.0-32.0); MCHC 33.3 g/dL (32.0-37.0); MCV 86.6 FL (80.0-97.0); Mean Platelet Volume 10.2 FL (9.5-12.2); Monocytes # (A) 0.37 X 10*3/uL (0.20-1.00); Monocytes % (A) 8.3 %; NRBC Per 100 WBC 0 X 10*3/uL (0.00-0.01); Neutrophils # (A) 2.17 X 10*3/uL (1.80-7.70); Neutrophils % (A) 48.5 %; Platelet Count 254 X 10*3/uL (140-440); RBC 4.61 X 10*6/uL (4.10-5.20); WBC 4.47 X 10*3/uL (4.50-10.00)
[2025-01-11 10:54] LABS: Chol/HDL Ratio 3.46 Ratio
[2025-01-11 10:55] LABS: ALT 19 U/L (8-44); AST 26 U/L (13-35); Albumin 4.4 g/dL (3.8-4.9); Albumin/Globulin Ratio 1.76 Ratio (1.60-3.17); Alkaline Phosphatase 63 U/L (41-126); BUN/Creat Ratio 14.33 Ratio (12.00-20.00); Blood Urea Nitrogen 12.9 mg/dL (9.0-27.0); Calcium 9.2 mg/dL (8.7-10.3); Carbon Dioxide 24.2 mmol/L (21.6-31.8); Chloride 107 mmol/L (96-109); Globulin 2.5 g/dL (1.6-3.3); Glucose 82 mg/dL (70-110); LDL Cholesterol,Calculated 103.9 mg/dL (0.0-131.0); Potassium 4.1 mmol/L (3.5-5.5); Sodium 143 mmol/L (135-145); Total Bilirubin 0.8 mg/dL (0.3-1.2); Total Protein 6.9 g/dL (6.2-8.2)
== END | disposition home or self-care (01) ==
LOC: LABWHC1 07:00
PROVIDERS: ATTEND Physician Assistant Medical
DX: Z00.00 Encounter for general adult medical examination without abnormal findings (principal); Z13.220 Encounter for screening for lipoid disorders; Z13.29 Encounter for screening for other suspected endocrine disorder; Z13.228 Encounter for screening for other metabolic disorders; Z79.899 Other long term (current) drug therapy
CPT/HCPCS: 36415; 80053; 80061; 84443; 85025